=== PATIENT | male | born 1955 | race Caucasian/White ===

== ENCOUNTER 2019-08-19 17:09 | Inpatient (IN) | payer MEDICAID, OTHER ==
[~2019-08-19] VITALS: Ht 175.3 cm; Wt 99.8 kg
[2019-08-19] MEDS ORDERED: ACETAMINOPHEN 325MG TABLET PO STA (17:42)
[2019-08-19 19:17] LABS: BASOPHILS % 0.2 % (0.0-2.0); HEMATOCRIT. 43.3 % (42.0-52.0); HEMOGLOBIN. 15.1 g/dL (14.0-18.0); LYMPHOCYTES % 9.9 % (20.0-50.0); MEAN CORPUSCULAR HEMOGLOBIN 31.2 pg (28.0-32.0); MEAN CORPUSCULAR VOLUME 89.6 fL (80.0-94.0); MEAN PLATELET VOLUME 9.6 fl (7.4-10.4); MONOCYTES % 4.6 % (2.0-8.0); NEUTROPHILS % 85.3 % (40.0-76.0); PLATELET 117 x1000/uL (130-400); RED BLOOD CELL COUNT 4.83 mill/uL (4.7-6.1); RED CELL DISTRIBUTION WIDTH 12.8 % (11.6-14.6)
[2019-08-19 19:21] LABS: CHLORIDE 105 mEq/L (98-107)
[2019-08-19 20:00] LABS: CLARITY URINE CLEAR (CLEAR); COLOR URINE YELLOW (YELLOW); KETONES URINE NEGATIVE (NEGATIVE); LEUKOCYTE ESTERASE URINE NEGATIVE (NEGATIVE); NITRITE URINE NEGATIVE (NEGATIVE); OCCULT BLOOD URINE NEGATIVE (NEGATIVE); PROTEIN URINE 1+ (NEGATIVE); SPECIFIC GRAVITY URINE 1.014 (1.005-1.030); UROBILINOGEN URINE 0.2 E.U./dL (0.2-1.0)
[2019-08-19] MEDS ORDERED: SODIUM CHLORIDE 0.9% 1,000 ML IV NR (23:45)
[2019-08-20] MEDS ORDERED: CEFTRIAXONE 1 G PREMIX 50 ML IV SCH (06:00)
[2019-08-20] MEDS ORDERED: SODIUM CHLORIDE 0.9% 1,000 ML IV NR (06:00)
[2019-08-20] MEDS ORDERED: AZITHROMYCIN 500 MG in DEXT 5% WATER 250 ML IV NR (06:00)
[2019-08-20] MEDS: ACETAMINOPHEN 325MG TABLET PO PRN ×3 (06:03→23:14)
[2019-08-20 08:20] VITALS: BP 106/72
[2019-08-20 12:00] VITALS: BP 98/59
[2019-08-20] MEDS ORDERED: BENZONATATE 100MG CAPSULE PO PRN (13:00)
[2019-08-20] MEDS: GUAIFENESIN 600MG ER TABLET PO SCH ×2 (13:17→21:53)
[2019-08-20 16:00] VITALS: BP 132/76
[2019-08-20] MEDS: ZINC SULFATE 220 MG ( 50 ) CAPSULE PO SCH (18:22)
[2019-08-20] MEDS: ASCORBIC ACID 500 MG TABLET PO SCH (18:22)
[2019-08-20 20:00] VITALS: BP 138/86
[2019-08-20] MEDS: ENOXAPARIN 30MG/0.3ML SYR SUBCUT SCH (21:00)
[2019-08-21] VITALS: BP 148/80
[2019-08-21 04:00] VITALS: BP 122/77
[2019-08-21] MEDS: ACETAMINOPHEN 325MG TABLET PO PRN ×3 (04:04→21:43)
[2019-08-21 08:00] VITALS: BP 118/72
[2019-08-21] MEDS ORDERED: CEFTRIAXONE 1 G PREMIX 50 ML IV SCH (09:00)
[2019-08-21] MEDS: ENOXAPARIN 30MG/0.3ML SYR SUBCUT SCH ×2 (09:49→21:14)
[2019-08-21] MEDS: GUAIFENESIN 600MG ER TABLET PO SCH ×2 (09:49→21:13)
[2019-08-21] MEDS: ZINC SULFATE 220 MG ( 50 ) CAPSULE PO SCH (09:49)
[2019-08-21] MEDS ORDERED: AZITHROMYCIN 500 MG in DEXT 5% WATER 250 ML IV SCH (10:00)
[2019-08-21] MEDS: ASCORBIC ACID 500 MG TABLET PO SCH (10:24)
[2019-08-21 12:00] VITALS: BP 136/80
[2019-08-21] MEDS: METOCLOPRAMIDE HCL 10MG/2ML VIAL IV PRN (12:29)
[2019-08-21] MEDS ORDERED: HYDROXYCHLOROQUINE SULFATE 200MG TABLET PO SCH (13:45)
[2019-08-21] MEDS: HYDROXYCHLOROQUINE SULFATE 200MG TABLET PO SCH ×2 (15:13→21:00)
[2019-08-21 16:00] VITALS: BP 140/87
[2019-08-21 20:00] VITALS: BP 130/64
[2019-08-22 00:01] VITALS: BP 108/55
[2019-08-22 04:00] VITALS: BP 103/55
[2019-08-22 05:23] LABS: BASOPHILS % 0.2 % (0.0-2.0); HEMATOCRIT. 40.5 % (42.0-52.0); HEMOGLOBIN. 14.2 g/dL (14.0-18.0); LYMPHOCYTES % 7.8 % (20.0-50.0); MEAN CORPUSCULAR HEMOGLOBIN 31.2 pg (28.0-32.0); MEAN CORPUSCULAR VOLUME 88.9 fL (80.0-94.0); MEAN PLATELET VOLUME 9.2 fl (7.4-10.4); MONOCYTES % 5.2 % (2.0-8.0); NEUTROPHILS % 86.8 % (40.0-76.0); PLATELET 129 x1000/uL (130-400); RED BLOOD CELL COUNT 4.55 mill/uL (4.7-6.1); RED CELL DISTRIBUTION WIDTH 12.3 % (11.6-14.6)
[2019-08-22] MEDS: ACETAMINOPHEN 325MG TABLET PO PRN ×3 (05:30→20:47)
[2019-08-22 06:54] LABS: CHLORIDE 107 mEq/L (98-107)
[2019-08-22 08:00] VITALS: BP 116/71
[2019-08-22] MEDS: HYDROXYCHLOROQUINE SULFATE 200MG TABLET PO SCH ×2 (09:07→20:27)
[2019-08-22] MEDS: ASCORBIC ACID 500 MG TABLET PO SCH (09:07)
[2019-08-22] MEDS: GUAIFENESIN 600MG ER TABLET PO SCH ×2 (09:07→20:28)
[2019-08-22] MEDS: ZINC SULFATE 220 MG ( 50 ) CAPSULE PO SCH (09:07)
[2019-08-22] MEDS: ENOXAPARIN 30MG/0.3ML SYR SUBCUT SCH ×2 (09:10→20:27)
[2019-08-22] MEDS: CEFTRIAXONE 1 G PREMIX 50 ML IV SCH (11:45)
[2019-08-22 12:00] VITALS: BP 113/74
[2019-08-22] MEDS ORDERED: AZITHROMYCIN 500 MG in DEXT 5% WATER 250 ML IV SCH (12:00)
[2019-08-22] MEDS: AZITHROMYCIN 500 MG in DEXT 5% WATER 250 ML IV SCH (15:33)
[2019-08-22 16:00] VITALS: BP 104/68
[2019-08-22 20:00] VITALS: BP 132/77
[2019-08-22] MEDS: METOCLOPRAMIDE HCL 10MG/2ML VIAL IV PRN (20:47)
[2019-08-23 00:24] VITALS: BP 119/70
[2019-08-23 03:59] VITALS: BP 112/65
[2019-08-23 08:00] VITALS: BP 98/65
[2019-08-23] MEDS: ENOXAPARIN 30MG/0.3ML SYR SUBCUT SCH ×2 (09:13→20:22)
[2019-08-23] MEDS: GUAIFENESIN 600MG ER TABLET PO SCH ×2 (09:13→20:17)
[2019-08-23] MEDS: ASCORBIC ACID 500 MG TABLET PO SCH (09:13)
[2019-08-23] MEDS: ZINC SULFATE 220 MG ( 50 ) CAPSULE PO SCH (09:13)
[2019-08-23] MEDS: CEFTRIAXONE 1 G PREMIX 50 ML IV SCH (09:13)
[2019-08-23] MEDS: HYDROXYCHLOROQUINE SULFATE 200MG TABLET PO SCH ×2 (09:14→20:17)
[2019-08-23 12:00] VITALS: BP 153/58
[2019-08-23] MEDS: AZITHROMYCIN 500 MG in DEXT 5% WATER 250 ML IV SCH (15:06)
[2019-08-23 16:10] VITALS: BP 98/65
[2019-08-23 20:00] VITALS: BP 107/62
[2019-08-24] VITALS: BP 105/69
[2019-08-24 04:00] VITALS: BP 94/61
[2019-08-24 06:05] LABS: CHLORIDE 110 mEq/L (98-107)
[2019-08-24 06:20] LABS: BASOPHILS % 0.4 % (0.0-2.0); EOSINOPHILS % 1.3 % (0.0-5.0); HEMATOCRIT. 40.9 % (42.0-52.0); HEMOGLOBIN. 14.4 g/dL (14.0-18.0); LYMPHOCYTES % 19.8 % (20.0-50.0); MEAN CORPUSCULAR HEMOGLOBIN 31.1 pg (28.0-32.0); MEAN CORPUSCULAR VOLUME 88.2 fL (80.0-94.0); MEAN PLATELET VOLUME 8.7 fl (7.4-10.4); MONOCYTES % 8.9 % (2.0-8.0); NEUTROPHILS % 69.6 % (40.0-76.0); PLATELET 179 x1000/uL (130-400); RED BLOOD CELL COUNT 4.63 mill/uL (4.7-6.1); RED CELL DISTRIBUTION WIDTH 12.5 % (11.6-14.6)
[2019-08-24 08:00] VITALS: BP 106/70
[2019-08-24] MEDS ORDERED: AZITHROMYCIN 250 MG in DEXT 5% WATER 250 ML IV SCH (09:00)
[2019-08-24] MEDS ORDERED: FUROSEMIDE 40MG/4ML VIAL IVP SCH (09:00)
[2019-08-24] MEDS: ZINC SULFATE 220 MG ( 50 ) CAPSULE PO SCH (09:16)
[2019-08-24] MEDS: CEFTRIAXONE 1 G PREMIX 50 ML IV SCH (09:16)
[2019-08-24] MEDS: GUAIFENESIN 600MG ER TABLET PO SCH ×2 (09:17→20:32)
[2019-08-24] MEDS: HYDROXYCHLOROQUINE SULFATE 200MG TABLET PO SCH ×2 (09:17→20:32)
[2019-08-24] MEDS: ENOXAPARIN 30MG/0.3ML SYR SUBCUT SCH ×2 (09:18→20:33)
[2019-08-24 09:56] LABS: PHOSPHORUS 4.4 mg/dL (2.5-4.9)
[2019-08-24 10:00] LABS: CREATINE KINASE MB FRACTION < 1.0 ng/mL (0.5-3.6)
[2019-08-24 10:52] LABS: BG CARBOXYHEMOGLOBIN 0.2 % (0.5-1.5); BG DEOXYHEMOGLOBIN 5.8 % (0.0-5.0); BG FRACTION INSPIRED OXYGEN 30; BG METHEMOGLOBIN 0.2 % (0.0-1.5); BG OXYGEN SATURATION 94.2 % (92.0-98.5); BG OXYHEMOGLOBIN 93.8 % (94.0-97.0); BG PCO2 32.2 mmHg (35.0-45.0); BG PH 7.453 (7.350-7.450); BG PO2 72.8 mmHg (75.0-100.0); BG SAMPLE SITE RIGHT RADIAL; BG TOTAL HEMOGLOBIN 14.9 g/dL (12.0-18.0); BG VENT MODE NASAL CANNULA
[2019-08-24] MEDS: THIAMINE HCL 200 MG in SODIUM CHLORIDE 0.9% 98 ML IV SCH ×2 (12:11→20:32)
[2019-08-24] MEDS: ASCORBIC ACID 500 MG TABLET PO SCH ×4 (12:11→22:55)
[2019-08-24 16:00] VITALS: BP 109/72
[2019-08-24 20:00] VITALS: BP 111/74
[2019-08-25] VITALS: BP 107/69
[2019-08-25 04:00] VITALS: BP 108/70
[2019-08-25] MEDS: ASCORBIC ACID 500 MG TABLET PO SCH ×3 (04:58→17:08)
[2019-08-25 08:00] VITALS: BP 102/67
[2019-08-25] MEDS: CEFTRIAXONE 1 G PREMIX 50 ML IV SCH (08:22)
[2019-08-25] MEDS: ENOXAPARIN 30MG/0.3ML SYR SUBCUT SCH ×2 (08:22→21:48)
[2019-08-25] MEDS: GUAIFENESIN 600MG ER TABLET PO SCH ×2 (08:23→21:48)
[2019-08-25] MEDS: ZINC SULFATE 220 MG ( 50 ) CAPSULE PO SCH (08:23)
[2019-08-25] MEDS: HYDROXYCHLOROQUINE SULFATE 200MG TABLET PO SCH ×2 (08:23→21:48)
[2019-08-25] MEDS: THIAMINE HCL 200 MG in SODIUM CHLORIDE 0.9% 98 ML IV SCH (10:04)
[2019-08-25 12:00] VITALS: BP 131/70
[2019-08-25] MEDS ORDERED: ALBUTEROL 6.7GM HFA INHALER ORI PRN (15:45)
[2019-08-25 16:10] VITALS: BP 110/71
[2019-08-25] MEDS: THIAMINE HCL 100MG TABLET PO SCH (16:26)
[2019-08-25 20:00] VITALS: BP 109/73
[2019-08-25] MEDS ORDERED: GUAIFENESIN 600MG ER TABLET PO SCH (21:00)
[2019-08-26] VITALS: BP 110/71
[2019-08-26 04:00] VITALS: BP 107/72
[2019-08-26] MEDS: ASCORBIC ACID 500 MG TABLET PO SCH ×3 (06:38→21:12)
[2019-08-26 06:54] LABS: BASOPHILS % 0.5 % (0.0-2.0); EOSINOPHILS % 1.5 % (0.0-5.0); HEMATOCRIT. 43.1 % (42.0-52.0); HEMOGLOBIN. 14.8 g/dL (14.0-18.0); LYMPHOCYTES % 16.7 % (20.0-50.0); MEAN PLATELET VOLUME 9.4 fl (7.4-10.4); MONOCYTES % 8.8 % (2.0-8.0); NEUTROPHILS % 72.5 % (40.0-76.0); PLATELET 257 x1000/uL (130-400); RED BLOOD CELL COUNT 4.79 mill/uL (4.7-6.1); RED CELL DISTRIBUTION WIDTH 12.5 % (11.6-14.6)
[2019-08-26 07:01] LABS: CHLORIDE 111 mEq/L (98-107)
[2019-08-26 07:10] LABS: PHOSPHORUS 2.9 mg/dL (2.5-4.9)
[2019-08-26 07:12] LABS: CREATINE KINASE MB FRACTION < 1.0 ng/mL (0.5-3.6)
[2019-08-26 08:00] VITALS: BP 109/70
[2019-08-26] MEDS: THIAMINE HCL 100MG TABLET PO SCH ×2 (09:00→17:22)
[2019-08-26] MEDS: GUAIFENESIN 600MG ER TABLET PO SCH ×2 (10:04→21:12)
[2019-08-26] MEDS: HYDROXYCHLOROQUINE SULFATE 200MG TABLET PO SCH (10:04)
[2019-08-26] MEDS: ZINC SULFATE 220 MG ( 50 ) CAPSULE PO SCH (10:04)
[2019-08-26] MEDS: ENOXAPARIN 30MG/0.3ML SYR SUBCUT SCH ×2 (10:05→21:13)
[2019-08-26] MEDS ORDERED: FUROSEMIDE 40MG/4ML VIAL IVP NR (10:30)
[2019-08-26 12:00] VITALS: BP 124/58
[2019-08-26 16:00] VITALS: BP 106/68
[2019-08-26 20:00] VITALS: BP 103/71
[2019-08-27] VITALS: BP 120/75
[2019-08-27 04:00] VITALS: BP 106/66
[2019-08-27 08:09] VITALS: BP 108/67
[2019-08-27] MEDS: GUAIFENESIN 600MG ER TABLET PO SCH ×2 (08:34→20:33)
[2019-08-27] MEDS: ZINC SULFATE 220 MG ( 50 ) CAPSULE PO SCH (08:34)
[2019-08-27] MEDS: ENOXAPARIN 30MG/0.3ML SYR SUBCUT SCH ×2 (08:34→20:34)
[2019-08-27] MEDS: ASCORBIC ACID 500 MG TABLET PO SCH ×2 (08:34→20:33)
[2019-08-27] MEDS: THIAMINE HCL 100MG TABLET PO SCH ×2 (08:34→16:35)
[2019-08-27 12:13] VITALS: BP 108/68
[2019-08-27] MEDS ORDERED: FUROSEMIDE 40MG/4ML VIAL IVP NR (13:00)
[2019-08-27 16:16] VITALS: BP 108/74
[2019-08-27 20:00] VITALS: BP 103/71
[2019-08-28] VITALS (7 sets, daily range): BP systolic 97–108; BP diastolic 65–73
[2019-08-28] MEDS: ENOXAPARIN 30MG/0.3ML SYR SUBCUT SCH ×2 (09:00→21:35)
[2019-08-28] MEDS: ZINC SULFATE 220 MG ( 50 ) CAPSULE PO SCH (10:21)
[2019-08-28] MEDS: GUAIFENESIN 600MG ER TABLET PO SCH ×2 (10:21→21:35)
[2019-08-28] MEDS: ASCORBIC ACID 500 MG TABLET PO SCH ×2 (10:21→21:35)
[2019-08-28] MEDS: THIAMINE HCL 100MG TABLET PO SCH ×2 (10:22→16:33)
[2019-08-29] VITALS: BP 107/66
[2019-08-29 08:00] VITALS: BP 105/68
[2019-08-29] MEDS: GUAIFENESIN 600MG ER TABLET PO SCH ×2 (09:27→21:00)
[2019-08-29] MEDS: ZINC SULFATE 220 MG ( 50 ) CAPSULE PO SCH (09:27)
[2019-08-29] MEDS: ASCORBIC ACID 500 MG TABLET PO SCH ×2 (09:27→22:42)
[2019-08-29 12:00] VITALS: BP 109/70
[2019-08-29] MEDS: THIAMINE HCL 100MG TABLET PO SCH ×2 (12:53→17:21)
[2019-08-29] MEDS: ENOXAPARIN 30MG/0.3ML SYR SUBCUT SCH ×2 (12:54→22:43)
[2019-08-29 16:00] VITALS: BP 102/67
[2019-08-29 20:00] VITALS: BP 101/70
[2019-08-30] VITALS: BP 96/62
[2019-08-30 04:00] VITALS: BP 96/66
[2019-08-30 06:18] LABS: CHLORIDE 109 mEq/L (98-107)
[2019-08-30 06:23] LABS: BASOPHILS % 0.8 % (0.0-2.0); EOSINOPHILS % 3.8 % (0.0-5.0); HEMOGLOBIN. 15.4 g/dL (14.0-18.0); LYMPHOCYTES % 31.8 % (20.0-50.0); MEAN CORPUSCULAR HEMOGLOBIN 31.6 pg (28.0-32.0); MEAN CORPUSCULAR VOLUME 90.2 fL (80.0-94.0); MEAN PLATELET VOLUME 9.4 fl (7.4-10.4); MONOCYTES % 10.2 % (2.0-8.0); NEUTROPHILS % 53.4 % (40.0-76.0); PLATELET 332 x1000/uL (130-400); RED BLOOD CELL COUNT 4.88 mill/uL (4.7-6.1); RED CELL DISTRIBUTION WIDTH 12.5 % (11.6-14.6)
[2019-08-30 06:28] LABS: C REACTIVE PROTEIN QUANT 4.2 mg/L (0.0-3.0)
[2019-08-30 08:00] VITALS: BP 100/62
[2019-08-30] MEDS: ASCORBIC ACID 500 MG TABLET PO SCH ×2 (09:00→22:27)
[2019-08-30] MEDS: ZINC SULFATE 220 MG ( 50 ) CAPSULE PO SCH (10:16)
[2019-08-30] MEDS: GUAIFENESIN 600MG ER TABLET PO SCH ×2 (10:16→22:27)
[2019-08-30] MEDS: THIAMINE HCL 100MG TABLET PO SCH ×2 (10:16→17:00)
[2019-08-30] MEDS: ENOXAPARIN 30MG/0.3ML SYR SUBCUT SCH ×2 (10:17→22:27)
[2019-08-30 12:00] VITALS: BP 102/53
[2019-08-30 16:00] VITALS: BP 101/66
[2019-08-30 20:00] VITALS: BP 100/68
[2019-08-31] VITALS: BP 107/71
[2019-08-31 04:00] VITALS: BP 93/56
[2019-08-31 08:00] VITALS: BP 104/66
[2019-08-31] MEDS: THIAMINE HCL 100MG TABLET PO SCH (09:58)
[2019-08-31] MEDS: ENOXAPARIN 30MG/0.3ML SYR SUBCUT SCH (09:58)
[2019-08-31] MEDS: ASCORBIC ACID 500 MG TABLET PO SCH (09:58)
[2019-08-31] MEDS: ZINC SULFATE 220 MG ( 50 ) CAPSULE PO SCH (09:58)
[2019-08-31 12:00] VITALS: BP 114/66
[2019-08-31 15:56] VITALS: BP 114/72
[2019-08-31 15:59] VITALS: BP 114/72
== END 2019-08-31 17:30 | disposition home or self-care (01) | DRG 720 ==
LOC: ER 17:09 → 7EST 08-20 00:02 → ENRESERV 08-20 07:29
PROVIDERS: ADMIT Internal Medicine; ATTEND Internal Medicine
DX: A41.89 Other specified sepsis (principal); U07.1 COVID-19; J96.01 Acute respiratory failure with hypoxia; E87.2 Acidosis; D69.6 Thrombocytopenia, unspecified; J12.89 Other viral pneumonia; R74.0 Nonspecific elevation of levels of transaminase and lactic acid dehydrogenase [LDH]
CPT/HCPCS: 36415; 36600; 71045; 80053; 81003; 82375; 82553; 82728; 82805; 83605; 83615; 83735; 83880; 84100; 84145; 84443; 84484; 85025; 85379; 86140; 86141; 87420; 87635; 87804; 93005; 99285; J0456; J0696; J1650; J1940; J2765; J3411; J7050; J7060